=== PATIENT | female | born 1985 | race Caucasian/White ===

== ENCOUNTER 2017-06-09 13:54 | Observation (INO) | payer BC ==
[2017-06-09 15:04] LABS: Basophils # (A) 0.1 k/uL (0-0.2); Basophils % (A) 1 %; Eosinophils # (A) 0.3 k/uL (0-0.7); Eosinophils % (A) 4 %; HCT 49.6 % (34.0-46.0); HGB 15.9 gm/dL (11.4-16.0); Lymphocytes # (A) 1.9 k/uL (1.0-4.8); Lymphocytes % (A) 20 %; MCH 30.3 pg (25.0-35.0); MCV 94.6 fL (80.0-100.0); Mean Platelet Volume 7.5; Monocytes # (A) 0.5 k/uL (0-1.0); Monocytes % (A) 6 %; Neutrophils # (A) 6.4 k/uL (1.3-7.7); Neutrophils % (A) 69 %; Platelet Count 267 k/uL (150-450); RBC 5.25 m/uL (3.80-5.40); RDW 12.5 % (11.5-15.5); WBC 9.3 k/uL (3.8-10.6)
[2017-06-09 15:05] LABS: Appearance,Urine Cloudy (Clear); Bacteria,Urine Occasional /hpf; Bilirubin,Urine Negative (Negative); Blood,Urine Negative (Negative); Budding Yeast,Urine Rare /hpf; Color,Urine Yellow; Glucose,Urine (UA) Negative (Negative); Ketones,Urine Trace (Negative); Leukocyte Esterase,Urine Trace (Negative); Mucus,Urine Moderate /hpf; Nitrite,Urine Negative (Negative); PH, Urine 6.5 (5.0-8.0); Protein,Urine Trace (Negative); RBC,Urine 3 /hpf (0-5); Specific Gravity,Urine 1.021 (1.001-1.035); Squamous Epithelial Cell,Urine 19 /hpf (0-4); Urobilinogen,Urine <2.0 mg/dL (<2.0); WBC,Urine 3 /hpf (0-5)
[2017-06-09 15:17] LABS: ALT 30 U/L (9-52); AST 25 U/L (14-36); Albumin 4.7 g/dL (3.5-5.0); Alkaline Phosphatase 57 U/L (38-126); Amylase 64 U/L (30-110); Anion Gap 11 mmol/L; Blood Urea Nitrogen 15 mg/dL (7-17); Calcium 10.2 mg/dL (8.4-10.2); Carbon Dioxide 27 mmol/L (22-30); Chloride 104 mmol/L (98-107); Glucose 89 mg/dL (74-99); Lipase 111 U/L (23-300); Potassium 4.1 mmol/L (3.5-5.1); Sodium 142 mmol/L (137-145); Total Bilirubin 0.6 mg/dL (0.2-1.3); Total Protein 7.9 g/dL (6.3-8.2)
[2017-06-09] MEDS ORDERED: RX INFO: IV CONTRAST WAS GIVEN 1 EACH MISC MISCELLANE PRN (15:57)
[2017-06-09] MEDS ORDERED: KETOROLAC 30 MG/ML 1 ML VIAL IVP STA (15:57)
[2017-06-09] MEDS ORDERED: SODIUM CHLORIDE 0.9% 1,000 ML IV STA (15:57)
--- NOTE | 2017-06-09 16:14 | ED ---
General Adult HPI - General Source: patient, RN notes reviewed Mode of arrival: ambulatory Limitations: no limitations <Herlinda Wright - Last Filed: 06/09/17 18:02> <Eleazar Li - Last Filed: 06/09/17 18:06> - General Chief complaint: Abdominal Pain Stated complaint: abdominal pain Time Seen by Provider: 06/09/17 15:51 - History of Present Illness Initial comments: 31-year-old female presents to the emergency department with a chief complaint of lower abdominal pain. Patient states it's a stabbing type pain. It is in the center of her abdomen. Patient states he'll just come and go. Patient states she has had nausea vomiting. She denies any fevers or chills with this. She states that she has had some pressure with urinating as well. She denies any cough cold like symptoms. She was concerned because just does not seem to be getting better so she thought that she should be seen. Patient denies any other symptoms at this time.Patient denies any recent fever, chills, shortness of breath, chest pain, back pain, numbness or tingling, dysuria or hematuria, constipation or diarrhea, headaches or visual changes, or any other current symptoms. (Herlinda Wright) - Related Data Home Medications Medication Instructions Recorded Confirmed Amoxicillin 500 mg PO Q8H 06/09/17 06/09/17 Levothyroxine Sodium [Synthroid] 125 mcg PO DAILY 06/09/17 06/09/17 Allergies Allergy/AdvReac Type Severity Reaction Status Date / Time morphine Allergy Rash/Hives Verified 06/09/17 16:01 Review of Systems ROS Other: All systems not noted in ROS Statement are negative. <Herlinda Wright - Last Filed: 06/09/17 18:02> ROS Other: All systems not noted in ROS Statement are negative. <Eleazar Li - Last Filed: 06/09/17 18:06> ROS Statement: Those systems with pertinent positive or pertinent negative responses have been documented in the HPI. Past Medical History Past Medical History: Thyroid Disorder Additional Past Medical History / Comment(s): sorethroat hypothyroidism History of Any Multi-Drug Resistant Organisms: None Reported Past Surgical History: Cholecystectomy Past Psychological History: Anxiety Smoking Status: Current every day smoker Past Alcohol Use History: Daily Past Drug Use History: Marijuana <Herlinda Wright - Last Filed: 06/09/17 18:02> General Exam Limitations: no limitations <Herlinda Wright - Last Filed: 06/09/17 18:02> <Eleazar Li - Last Filed: 06/09/17 18:06> - General Exam Comments Initial Comments: General: The patient is awake and alert, in no distress, and does not appear acutely ill. Eye: Pupils are equal, round and reactive to light, extra-ocular movements are intact; there is normal conjunctiva bilaterally. No signs of icterus. Ears, nose, mouth and throat: There are moist mucous membranes. Neck: The neck is supple, there is no tenderness. Cardiovascular: There is a regular rate and rhythm. No murmur, rub or gallop is appreciated. Respiratory: Lungs are clear to auscultation, respirations are non-labored, breath sounds are equal. No wheezes, stridor, rales, or rhonchi. Gastrointestinal: Soft, non-distended, suprapubic tenderness of the abdomen without masses or organomegaly noted. There is no rebound or guarding present. No CVA tenderness. Bowel sounds are unremarkable. Back: There is no tenderness to palpation in the midline. There is no obvious deformity. No rashes noted. Musculoskeletal: Normal ROM, no tenderness, There is no pedal edema. There is no calf tenderness or swelling. Sensation intact. Pulses equal bilaterally 2+. Neurological: CN II-XII intact, There are no obvious motor or sensory deficits. Coordination appears grossly intact. Speech is normal. Skin: Skin is warm and dry and no rashes or lesions are noted. Psychiatric: Cooperative, appropriate mood & affect, normal judgment. (Herlinda Wright) Course <Herlinda Wright - Last Filed: 06/09/17 18:02> <Eleazar Li - Last Filed: 06/09/17 18:06> Vital Signs 06/09/17 14:26 Temperature 98.4 F Pulse Rate 81 Respiratory 18 Rate Blood Pressure 123/80 O2 Sat by Pulse 98 Oximetry - Reevaluation(s) Reevaluation #1: 06/09/17 18:05 PA supervision: I did personally do a [id number] evaluation the patient did discuss the findings with her and her family members. She does demonstrate some mild tenderness to palpation over the lower abdomen suprapubic region no guarding rebound masses or bruits I did review the imaging and report there is evidence of a swirl sign. Mesenteric involvement a large differential is noted. I did discuss case with Dr. Montoya. Patient will be admitted for further evaluation. (Eleazar Li) Medical Decision Making - Lab Data Result diagrams: 06/09/17 14:45 06/09/17 14:45 - Radiology Data Radiology results: report reviewed, image reviewed <Herlinda Wright - Last Filed: 06/09/17 18:02> - Lab Data Result diagrams: 06/09/17 14:45 06/09/17 14:45 <Eleazar Li - Last Filed: 06/09/17 18:06> - Medical Decision Making 31-year-old female presents for some abdominal discomfort. At this time CAT scan is showing concern due to mesenteric edema. This time we will admit the patient Dr. Montoya was contacted by Dr. Li. We will give her pain medication nausea meds for the floor. Patient is agreement this plan. All questions have been answered. This time patient will be admitted. (Herlinda Wright) - Lab Data Lab Results 06/09/17 06/09/17 06/09/17 Range/Units 14:45 14:45 14:45 WBC 9.3 (3.8-10.6) k/uL RBC 5.25 (3.80-5.40) m/uL Hgb 15.9 (11.4-16.0) gm/dL Hct 49.6 H (34.0-46.0) % MCV 94.6 (80.0-100.0) fL MCH 30.3 (25.0-35.0) pg MCHC 32.0 (31.0-37.0) g/dL RDW 12.5 (11.5-15.5) % Plt Count 267 (150-450) k/uL Neutrophils % 69 % Lymphocytes % 20 % Monocytes % 6 % Eosinophils % 4 % Basophils % 1 % Neutrophils # 6.4 (1.3-7.7) k/uL Lymphocytes # 1.9 (1.0-4.8) k/uL Monocytes # 0.5 (0-1.0) k/uL Eosinophils # 0.3 (0-0.7) k/uL Basophils # 0.1 (0-0.2) k/uL Sodium 142 (137-145) mmol/L Potassium 4.1 (3.5-5.1) mmol/L Chloride 104 (98-107) mmol/L Carbon Dioxide 27 (22-30) mmol/L Anion Gap 11 mmol/L BUN 15 (7-17) mg/dL Creatinine 0.80 (0.52-1.04) mg/dL Est GFR (CKD-EPI)AfAm >90 (>60 ml/min/1.73 sqM) Est GFR (CKD-EPI)NonAf >90 (>60 ml/min/1.73 sqM) Glucose 89 (74-99) mg/dL Calcium 10.2 (8.4-10.2) mg/dL Total Bilirubin 0.6 (0.2-1.3) mg/dL AST 25 (14-36) U/L ALT 30 (9-52) U/L Alkaline Phosphatase 57 (38-126) U/L Total Protein 7.9 (6.3-8.2) g/dL Albumin 4.7 (3.5-5.0) g/dL Amylase 64 (30-110) U/L Lipase 111 (23-300) U/L Urine Color Urine Appearance (Clear) Urine pH (5.0-8.0) Ur Specific [place] (1.001-1.035) Urine Protein (Negative) Urine Glucose (UA) (Negative) Urine Ketones (Negative) Urine Blood (Negative) Urine Nitrite (Negative) Urine Bilirubin (Negative) Urine Urobilinogen (<2.0) mg/dL Ur Leukocyte Esterase (Negative) Urine RBC (0-5) /hpf Urine WBC (0-5) /hpf Ur Squamous Epith Cells (0-4) /hpf Urine Bacteria (None) /hpf Urine Mucus (None) /hpf Urine Yeast (Budding) (None) /hpf Urine HCG, Qual Not Detected (Not Detectd) 06/09/17 Range/Units 14:45 WBC (3.8-10.6) k/uL RBC (3.80-5.40) m/uL Hgb (11.4-16.0) gm/dL Hct (34.0-46.0) % MCV (80.0-100.0) fL MCH (25.0-35.0) pg MCHC (31.0-37.0) g/dL RDW (11.5-15.5) % Plt Count (150-450) k/uL Neutrophils % % Lymphocytes % % Monocytes % % Eosinophils % % Basophils % % Neutrophils # (1.3-7.7) k/uL Lymphocytes # (1.0-4.8) k/uL Monocytes # (0-1.0) k/uL Eosinophils # (0-0.7) k/uL Basophils # (0-0.2) k/uL Sodium (137-145) mmol/L Potassium (3.5-5.1) mmol/L Chloride (98-107) mmol/L Carbon Dioxide (22-30) mmol/L Anion Gap mmol/L BUN (7-17) mg/dL Creatinine (0.52-1.04) mg/dL Est GFR (CKD-EPI)AfAm (>60 ml/min/1.73 sqM) Est GFR (CKD-EPI)NonAf (>60 ml/min/1.73 sqM) Glucose (74-99) mg/dL Calcium (8.4-10.2) mg/dL Total Bilirubin (0.2-1.3) mg/dL AST (14-36) U/L ALT (9-52) U/L Alkaline Phosphatase (38-126) U/L Total Protein (6.3-8.2) g/dL Albumin (3.5-5.0) g/dL Amylase (30-110) U/L Lipase (23-300) U/L Urine Color Yellow Urine Appearance Cloudy H (Clear) Urine pH 6.5 (5.0-8.0) Ur Specific [place] 1.021 (1.001-1.035) Urine Protein Trace H (Negative) Urine Glucose (UA) Negative (Negative) Urine Ketones Trace H (Negative) Urine Blood Negative (Negative) Urine Nitrite Negative (Negative) Urine Bilirubin Negative (Negative) Urine Urobilinogen <2.0 (<2.0) mg/dL Ur Leukocyte Esterase Trace H (Negative) Urine RBC 3 (0-5) /hpf Urine WBC 3 (0-5) /hpf Ur Squamous Epith Cells 19 H (0-4) /hpf Urine Bacteria Occasional H (None) /hpf Urine Mucus Moderate H (None) /hpf Urine Yeast (Budding) Rare H (None) /hpf Urine HCG, Qual (Not Detectd) Disposition Decision Date: 06/09/17 Decision Time: 18:03 <Herlinda Wright - Last Filed: 06/09/17 18:02> <Eleazar Li - Last Filed: 06/09/17 18:06> Clinical Impression: Abdominal pain, Nausea & vomiting Disposition: ADMITTED IP TO THIS [facility] Condition: Stable Referrals: Neo Garcia DO [Primary Care Provider] - 1-2 days
--- NOTE | 2017-06-09 17:02 | CT ---
EXAMINATION TYPE: CT abdomen pelvis w con DATE OF EXAM: 06/09/2017 HISTORY: Lower abdominal pain CT DLP: 1095mGycm Automated Exposure Control for Dose Reduction was Utilized. CONTRAST: CT scan of the abdomen and pelvis is performed with IV Contrast, patient injected with 100 mL of Isov ue 300. COMPARISON: None. FINDINGS: LUNG BASES: Punctate benign granulomas seen within the left lower lobe near the interlobar fissure. LIVER/GB: The liver is elongated extending into the left upper quadrant. Punctate to small to accurat rigoberto characterize 3 mm lesion is seen on series 3 image 26 within the liver in segment IVb. Additional ly there is a focal area of hypoattenuation near the fissure for the falciform ligament most commonly related to focal fatty infiltration. No intrahepatic biliary ductal dilatation. The gallbladder is s urgically absent. PANCREAS: Pancreas enhances homogeneously without ductal dilatation. SPLEEN: No splenomegaly. ADRENALS: No adrenal gland thickening or nodularity. KIDNEYS: The kidneys enhance symmetrically and excrete symmetrically without hydronephrosis or hydrou reter. BOWEL: There is no bowel enlargement, however multiple loops of prominent small bowel are clustered within the left mid abdomen on coronal series 5 image 38 with central swirling of the mesentery with the SMV swirling around the SMA seen on series 3 image 31-41. This is compatible with the swelling ve ssels sign. Mesenteric edema and engorgement of the vasa recta are also seen within the low pelvis on series 3 image 63 and 64. Descending colon is decompressed. Appendix is air-filled and within normal limits. Terminal ileum is also decompressed and evaluation for bowel wall thickening is limited. UTERUS/ADNEXA: Crenulated appearing peripherally hyperemic and hyperattenuated 1.8 cm left adnexal le kay is seen as well as an additional 2.2 cm low-density left adnexal lesion. Numerous right ovarian follicles are noted. Free fluid is noted within the pelvis, overall moderate degree. LYMPH NODES: No greater than 1cm abdominal or pelvic lymph nodes are appreciated. OSSEOUS STRUCTURES: Osseous structures are intact. IMPRESSION: 1. Although there is no evidence of bowel enlargement and no transition point identified there is a s wirling vessels sign in the mesentery that can be seen in internal hernia. Surgical evaluation could be performed. 2. Mesenteric edema and vascular engorgement in the low pelvis that can be related to fluid overload or inflammatory bowel disease. 3. Crenulated appearing left adnexal lesion that likely represents an involuting cyst and small amoun t of free pelvic fluid that may represent recent cyst rupture.
[2017-06-09] MEDS ORDERED: ONDANSETRON 4 MG/2 ML VIAL IVP PRN (18:03)
[2017-06-09] MEDS ORDERED: NALOXONE 0.4 MG/ML 1 ML VIAL IV PRN (18:03)
[2017-06-09] MEDS ORDERED: KETOROLAC 30 MG/ML 1 ML VIAL IVP PRN (18:03)
[2017-06-09] MEDS ORDERED: ACETAMINOPHEN TAB 500 MG TAB PO STA (18:25)
[2017-06-09] MEDS ORDERED: fentaNYL (PF) 50 MCG/ML 2 ML AMP IV STA (18:28)
[2017-06-09 20:03] VITALS: BMI 23.7
[2017-06-09] MEDS: HYDROcodone/APAP 5-325MG 1 EACH TAB PO PRN (20:42)
[2017-06-09] MEDS: AMOXICILLIN 500 MG CAP PO SCH (21:53)
[2017-06-10] MEDS: HYDROcodone/APAP 5-325MG 1 EACH TAB PO PRN ×4 (03:34→22:15)
[2017-06-10] MEDS: LEVOTHYROXINE 125 MCG TAB PO SCH (06:10)
[2017-06-10 06:49] LABS: ALT 26 U/L (9-52); AST 17 U/L (14-36); Albumin 3.2 g/dL (3.5-5.0); Alkaline Phosphatase 41 U/L (38-126); Anion Gap 8 mmol/L; Basophils % (A) 1 %; Blood Urea Nitrogen 14 mg/dL (7-17); Calcium 8.5 mg/dL (8.4-10.2); Carbon Dioxide 21 mmol/L (22-30); Chloride 110 mmol/L (98-107); Eosinophils # (A) 0.4 k/uL (0-0.7); Eosinophils % (A) 6 %; Glucose 83 mg/dL (74-99); HGB 13.3 gm/dL (11.4-16.0); Lymphocytes # (A) 1.8 k/uL (1.0-4.8); Lymphocytes % (A) 33 %; MCHC 34.1 g/dL (31.0-37.0); MCV 93.7 fL (80.0-100.0); Mean Platelet Volume 7.3; Monocytes # (A) 0.3 k/uL (0-1.0); Monocytes % (A) 4 %; Neutrophils % (A) 54 %; Platelet Count 230 k/uL (150-450); Potassium 3.9 mmol/L (3.5-5.1); RBC 4.16 m/uL (3.80-5.40); RDW 12.3 % (11.5-15.5); Sodium 139 mmol/L (137-145); Total Bilirubin 0.8 mg/dL (0.2-1.3); Total Protein 5.5 g/dL (6.3-8.2); WBC 5.6 k/uL (3.8-10.6)
[2017-06-10] MEDS: SODIUM CHLORIDE 0.9% 1,000 ML IV SCH ×3 (07:48→18:11)
[2017-06-10] MEDS: AMOXICILLIN 500 MG CAP PO SCH ×3 (07:51→22:15)
--- NOTE | 2017-06-10 11:23 | P.GSHP ---
History of Present Illness H&P Date: 06/10/17 Chief Complaint: Abdominal pain Patient came to the ER yesterday with complaints of somewhat sudden onset mid abdominal pain. The pain is periumbilical. Initially she thought it may be menstrual cramps however it became much more severe in nature and for that reason she wanted this evaluated. She had episodes of nausea and vomiting. She feels a heaviness in the lower abdomen. Pain is worse when standing. No history of similar events. Normal bowel habits recently. No rectal bleeding or melena. No fevers. Her labs a been normal including a lactic acid. Her CAT scan however showed some swirling of the small bowel mesentery with some subtle edema in the small bowel mesentery as well. She was admitted for observation. She says her pain is still coming and going throughout the night although better this morning that was yesterday. Pain ranges from 2-5 out of 10. Only surgical history is a lap amber. She was told she had scar tissue at that time. No evidence of malrotation on CAT scan given the location of the ligament of Treitz. - Review of Systems Comment: The patient denies any acute changes in vision or hearing, no dysphagia or odynophagia, no chest pain or shortness of breath, no dysuria or hematuria, no headache, no runny nose, no rectal bleeding or melena, no unexplained weight loss Past Medical History Past Medical History: Thyroid Disorder Additional Past Medical History / Comment(s): hypothyroidism History of Any Multi-Drug Resistant Organisms: None Reported Past Surgical History: Cholecystectomy Past Psychological History: Anxiety Smoking Status: Current every day smoker Past Alcohol Use History: Daily Additional Past Alcohol Use History / Comment(s): pt states she has a glass of wine with each meal. Past Drug Use History: Marijuana - Past Family History Mother Family Medical History: COPD, Hypertension Additional Family Medical History / Comment(s): macular degeneration, heart murmur, 2 hip surgeries Father Family Medical History: Hypertension Medications and Allergies Home Medications Medication Instructions Recorded Confirmed Type Amoxicillin 500 mg PO Q8H 06/09/17 06/09/17 History Levothyroxine Sodium [Synthroid] 125 mcg PO DAILY 06/09/17 06/09/17 History Allergies Allergy/AdvReac Type Severity Reaction Status Date / Time morphine Allergy Rash/Hives Verified 06/09/17 16:01 Surgical - Exam Vital Signs Temp Pulse Resp BP Pulse Ox 98.4 F 81 18 123/80 98 06/09/17 14:26 06/09/17 14:26 06/09/17 14:26 06/09/17 14:26 06/09/17 14:26 Physical exam: General: Well-developed, well-nourished HEENT: Normocephalic, sclerae nonicteric Abdomen: Nondistended, mild diffuse tenderness increase in the infraumbilical location Extremities: No edema Neuro: Alert and oriented Results - Labs 06/10/17 06:20 06/10/17 06:20 Abnormal Lab Results - Last 24 Hours (Table) 06/09/17 06/09/17 06/10/17 Range/Units 14:45 14:45 06:20 Hct 49.6 H (34.0-46.0) % Chloride 110 H (98-107) mmol/L Carbon Dioxide 21 L (22-30) mmol/L Total Protein 5.5 L (6.3-8.2) g/dL Albumin 3.2 L (3.5-5.0) g/dL Urine Appearance Cloudy H (Clear) Urine Protein Trace H (Negative) Urine Ketones Trace H (Negative) Ur Leukocyte Esterase Trace H (Negative) Ur Squamous Epith Cells 19 H (0-4) /hpf Urine Bacteria Occasional H (None) /hpf Urine Mucus Moderate H (None) /hpf Urine Yeast (Budding) Rare H (None) /hpf Diabetes panel 06/09/17 06/10/17 Range/Units 14:45 06:20 Sodium 142 139 (137-145) mmol/L Potassium 4.1 3.9 (3.5-5.1) mmol/L Chloride 104 110 H (98-107) mmol/L Carbon Dioxide 27 21 L (22-30) mmol/L BUN 15 14 (7-17) mg/dL Creatinine 0.80 0.70 (0.52-1.04) mg/dL Glucose 89 83 (74-99) mg/dL Calcium 10.2 8.5 (8.4-10.2) mg/dL AST 25 17 (14-36) U/L ALT 30 26 (9-52) U/L Alkaline Phosphatase 57 41 (38-126) U/L Total Protein 7.9 5.5 L (6.3-8.2) g/dL Albumin 4.7 3.2 L (3.5-5.0) g/dL Calcium panel 06/09/17 06/10/17 Range/Units 14:45 06:20 Calcium 10.2 8.5 (8.4-10.2) mg/dL Albumin 4.7 3.2 L (3.5-5.0) g/dL Pituitary panel 06/09/17 06/10/17 Range/Units 14:45 06:20 Sodium 142 139 (137-145) mmol/L Potassium 4.1 3.9 (3.5-5.1) mmol/L Chloride 104 110 H (98-107) mmol/L Carbon Dioxide 27 21 L (22-30) mmol/L BUN 15 14 (7-17) mg/dL Creatinine 0.80 0.70 (0.52-1.04) mg/dL Glucose 89 83 (74-99) mg/dL Calcium 10.2 8.5 (8.4-10.2) mg/dL Adrenal panel 06/09/17 06/10/17 Range/Units 14:45 06:20 Sodium 142 139 (137-145) mmol/L Potassium 4.1 3.9 (3.5-5.1) mmol/L Chloride 104 110 H (98-107) mmol/L Carbon Dioxide 27 21 L (22-30) mmol/L BUN 15 14 (7-17) mg/dL Creatinine 0.80 0.70 (0.52-1.04) mg/dL Glucose 89 83 (74-99) mg/dL Calcium 10.2 8.5 (8.4-10.2) mg/dL Total Bilirubin 0.6 0.8 (0.2-1.3) mg/dL AST 25 17 (14-36) U/L ALT 30 26 (9-52) U/L Alkaline Phosphatase 57 41 (38-126) U/L Total Protein 7.9 5.5 L (6.3-8.2) g/dL Albumin 4.7 3.2 L (3.5-5.0) g/dL Assessment and Plan (1) Abdominal pain Narrative/Plan: Clinical scenario discussed in detail with the patient and her . There remains a concern regarding the CAT scan findings despite her normal lab work and vital signs. The possibility the patient has a partial volvulus or internal hernia remains particularly given the way she describes the pain in the location of the pain. The potential catastrophic nature of a missed diagnosis in this case leads me to strongly consider diagnostic laparoscopy. The patient is agreeable. We discussed the options of lysis of adhesions or laparotomy if necessary. Risks of bleeding, infection, bowel injury, recurrent adhesions, recurrent hernia, negative laparoscopy was discussed. She understands and wishes to proceed. Current Visit: Yes Status: Acute Code(s): R10.9 - UNSPECIFIED ABDOMINAL PAIN SNOMED Code(s): 79028375
[2017-06-10] MEDS ORDERED: IV FLUID CONTINUATION 1,000 ML IV ONE (14:27)
[2017-06-10] MEDS ORDERED: HEPARIN SODIUM,PORCINE 5,000 UNIT/ML 1 ML VIAL SQ ONE (14:34)
[2017-06-10] MEDS ORDERED: ROCURONIUM BROMIDE 10 MG/ML 10 ML VIAL IV ONE (14:39)
[2017-06-10] MEDS ORDERED: ACETAMINOPHEN IV (For NPO) 1,000 MG/100 ML VIAL ONE (14:39)
[2017-06-10] MEDS ORDERED: fentaNYL (PF) 50 MCG/ML 2 ML AMP ONE (14:39)
[2017-06-10] MEDS ORDERED: PROPOFOL 10 MG/ML 20 ML VIAL IV ONE (14:39)
[2017-06-10] MEDS ORDERED: GLYCOPYRROLATE 0.2 MG/ML 2 ML VIAL ONE (14:39)
[2017-06-10] MEDS ORDERED: ONDANSETRON 4 MG/2 ML VIAL ONE (14:39)
[2017-06-10] MEDS ORDERED: MIDAZOLAM 2 MG/2 ML VIAL ONE (14:39)
[2017-06-10] MEDS ORDERED: LIDOCAINE 1% INJ 10MG/ML (20 ML MDV) ONE (14:39)
[2017-06-10] MEDS ORDERED: NEOSTIGMINE 1 MG/ML 10 ML VIAL ONE (14:39)
[2017-06-10] MEDS ORDERED: SUCCINYLCHOLINE CHLORIDE 100 MG/5 ML SYR IV ONE (14:39)
[2017-06-10] MEDS ORDERED: ceFAZolin IN SWFI 2 GM/20 ML SYRINGE IVP ONE (14:45)
[2017-06-10] MEDS ORDERED: BUPIVACAINE (PF) 0.25% 30 ML VIAL SQ ONE ×2 (14:48)
[2017-06-10] MEDS ORDERED: SODIUM CHLORIDE 0.9% 50 ML with ceFAZolin 2,000 MG IV ONE ×2 (14:50)
[2017-06-10] MEDS ORDERED: LACTATED RINGERS 1,000 ML IV ONE (15:10)
[2017-06-10] MEDS ORDERED: CELLULOSE,OXIDIZED 1 EACH EACH MISCELLANE ONE (15:35)
--- NOTE | 2017-06-10 15:53 | P.CONS ---
History of Present Illness - Reason for Consult Possibility of urinary tract infection - History of Present Illness Patient came to the ER yesterday with complaints of somewhat sudden onset mid abdominal pain. The pain is periumbilical. Initially she thought it may be menstrual cramps however it became much more severe in nature and for that reason she wanted this evaluated. She had episodes of nausea and vomiting. She feels a heaviness in the lower abdomen. Pain is worse when standing. No history of similar events. Normal bowel habits recently. No rectal bleeding or melena. No fevers. Her labs a been normal including a lactic acid. Her CAT scan however showed some swirling of the small bowel mesentery with some subtle edema in the small bowel mesentery as well. She was admitted for observation. She says her pain is still coming and going throughout the night although better this morning that was yesterday. Pain ranges from 2-5 out of 10. Only surgical history is a lap amber. She was told she had scar tissue at that time. No evidence of malrotation on CAT scan given the location of the ligament of Treitz. Patient is undergoing the expiratory laparotomy today. Patient denied any dysuria patient doesn't have any fever chills. Patient denied any increased urinary frequency. Patient does have dry cough and patient was diagnosed with the stay pharyngitis for which patient is on ampicillin which is being continued here. Review of Systems REVIEW OF SYSTEMS: CONSTITUTIONAL: No fever, no malaise, no fatigue. HEENT: As mentioned in HPI CARDIOVASCULAR: No chest pain, orthopnea, PND, no palpitations, no syncope. PULMONARY: No shortness of breath, no cough, no hemoptysis. GASTROINTESTINAL: As mentioned in HPI NEUROLOGICAL: No headaches, no weakness, no numbness. HEMATOLOGICAL: Denies any bleeding or petechiae. GENITOURINARY: Denies any burning micturition, frequency, or urgency. MUSCULOSKELETAL/RHEUMATOLOGICAL: Denies any joint pain, swelling, or any muscle pain. ENDOCRINE: Denies any polyuria or polydipsia. The rest of the 14-point review of systems is negative. Past Medical History Past Medical History: Thyroid Disorder Additional Past Medical History / Comment(s): hypothyroidism History of Any Multi-Drug Resistant Organisms: None Reported Past Surgical History: Cholecystectomy Past Psychological History: Anxiety Smoking Status: Current every day smoker Past Alcohol Use History: Daily Additional Past Alcohol Use History / Comment(s): pt states she has a glass of wine with each meal. Past Drug Use History: Marijuana - Past Family History Mother Family Medical History: COPD, Hypertension Additional Family Medical History / Comment(s): macular degeneration, heart murmur, 2 hip surgeries Father Family Medical History: Hypertension Medications and Allergies Home Medications Medication Instructions Recorded Confirmed Type Amoxicillin 500 mg PO Q8H 06/09/17 06/09/17 History Levothyroxine Sodium [Synthroid] 125 mcg PO DAILY 06/09/17 06/09/17 History Allergies Allergy/AdvReac Type Severity Reaction Status Date / Time morphine Allergy Rash/Hives Verified 06/10/17 14:28 Physical Exam Vitals: Vital Signs Temp Pulse Pulse Resp BP BP Pulse Ox 06/10/17 14:28 62 16 107/70 98 06/10/17 11:39 98.8 F 67 18 118/84 99 06/10/17 08:05 98.1 F 62 16 106/71 98 06/10/17 08:02 98.1 F 62 16 106/71 98 06/10/17 03:30 98.5 F 66 18 106/66 98 06/09/17 20:00 98.6 F 66 18 127/75 98 06/09/17 19:38 98.4 F 60 18 122/81 98 Intake and Output 06/10/17 06/10/17 06/10/17 06:59 14:59 22:59 Intake Total 980 200 Balance 980 200 Intake: IV 200 Intake, IV Titration 980 Amount Sodium Chloride 0.9% 1, 980 000 ml @ 100 mls/hr IV . Q10H [facility] Rx#:[id number] Other: # Voids 1 1 PHYSICAL EXAMINATION: GENERAL: The patient is alert and oriented x3, not in any acute distress. Well developed, well nourished. HEENT: Pupils are round and equally reacting to light. EOMI. No scleral icterus. No conjunctival pallor. Normocephalic, atraumatic. No pharyngeal erythema. No thyromegaly. CARDIOVASCULAR: S1 and S2 present. No murmurs, rubs, or gallops. PULMONARY: Chest is clear to auscultation, no wheezing or crackles. ABDOMEN: Soft, minimal tenderness in the periodic leg area nondistended, normoactive bowel sounds. No palpable organomegaly. MUSCULOSKELETAL: No joint swelling or deformity. EXTREMITIES: No cyanosis, clubbing, or pedal edema. NEUROLOGICAL: Gross neurological examination did not reveal any focal deficits. SKIN: No rashes. Results CBC & Chem 7: 06/10/17 06:20 06/10/17 06:20 Labs: Abnormal Lab Results - Last 24 Hours (Table) 06/10/17 Range/Units 06:20 Chloride 110 H (98-107) mmol/L Carbon Dioxide 21 L (22-30) mmol/L Total Protein 5.5 L (6.3-8.2) g/dL Albumin 3.2 L (3.5-5.0) g/dL Assessment and Plan Plan: Assessment and Plan Plan: -Abdominal pain: Probably related to intussusception or internal hernia, patient will undergo expiratory laparotomy. Pain management as per primary service -Asymbptomatic bacteriuria: Patient doesn't have any urinary tract infection will not require antibiotics from this perspective although patient is on ampicillin for step sore throat -Strep pharyngitis -Hypothyroidism continue with levo-thyroxine
--- NOTE | 2017-06-10 16:20 | P.OP ---
Date of Procedure: 06/10/17 Procedure(s) Performed: PREOPERATIVE DIAGNOSIS: Abdominal pain, possible internal hernia or volvulus POSTOPERATIVE DIAGNOSIS: Hemoperitoneum with hemorrhagic left ovarian cyst PROCEDURE: Diagnostic laparoscopy with control of hemorrhagic left ovarian cyst SURGEON: Jan EBL: 50 mL with approximately 250 mL of old blood within the abdominal cavity ANESTHESIA: Gen. COMPLICATIONS: None OPERATIVE PROCEDURE: The patient was brought and placed on the operating room table in the supine position. The patient was placed under general anesthesia at that time. The abdomen was prepped and draped in the usual sterile fashion. A small vertical infraumbilical incision was made. The fascia was grasped with the Lindsay forceps. The fascia was retracted anteriorly. The Veress needle was advanced into the peritoneal cavity. The saline drop test was normal. Insufflation took place up to 15 mmHg. A 5 mm optical trocar was advanced and the peritoneal cavity. 2 additional 5 mm trochars were placed in the left lateral abdomen. The patient had evidence of hemoperitoneum. This was enough to see some blood along the right pericolic gutter and around the liver as well as in the pelvis. This was evacuated using suction. There was some more dense organized clot formation in the left adnexa. The visualized liver stomach and colon appeared normal. The small bowel was ran from the ileocecal valve to the ligament of Treitz and no abnormalities were identified. There were no adhesions in the abdomen. The appendix appeared normal. I then reexamined the left and right ovaries. When I first evaluated the bilateral adnexa I did not appreciate any active bleeding. However when I reexamined the left adnexa there was active bleeding coming from a small superficial defect in the capsule of the left ovary. This was bleeding somewhat briskly. This was controlled fairly easily with electrocautery. I contacted radiology during the procedure who agreed that there did appear to be some inflammatory change and fluid adjacent to the left ovary on last night CAT scan. I also contacted gynecology on-call Dr. Gonzalez. She advised wrapping the left ovary in Interceed to help prevent future adhesions. In the process of placing the Interceed ovary was lifted out of the pelvis once again. I did see some slight oozing that was controlled once again using electrocautery. I watched that ovary for approximately 10 minutes following that with some irrigation as well and no further bleeding was identified. The ovary was wrapped in intercede. This was placed back into the adnexa. Further irrigation took place. The trochars were removed. The skin at all 3 sites were closed using 4-0 Monocryl sutures. At the end of this procedure the sponge and needle counts were correct. DISPOSITION: Stable to the recovery room
[2017-06-10 16:36] LABS: Basophils # (A) 0.1 k/uL (0-0.2); Basophils % (A) 1 %; Eosinophils # (A) 0.3 k/uL (0-0.7); Eosinophils % (A) 4 %; HCT 39.8 % (34.0-46.0); HGB 12.4 gm/dL (11.4-16.0); Lymphocytes # (A) 1.8 k/uL (1.0-4.8); Lymphocytes % (A) 22 %; MCH 30.5 pg (25.0-35.0); MCHC 31.1 g/dL (31.0-37.0); Mean Platelet Volume 8.1; Monocytes # (A) 0.3 k/uL (0-1.0); Monocytes % (A) 4 %; Neutrophils # (A) 5.4 k/uL (1.3-7.7); Neutrophils % (A) 67 %; Platelet Count 200 k/uL (150-450); RBC 4.05 m/uL (3.80-5.40); RDW 12.2 % (11.5-15.5)
[2017-06-10] MEDS ORDERED: diphenhydrAMINE 50 MG/ML 1 ML VIAL IVP ONE (16:59)
[2017-06-11] MEDS: HYDROcodone/APAP 5-325MG 1 EACH TAB PO PRN ×5 (02:22→20:08)
[2017-06-11] MEDS: SODIUM CHLORIDE 0.9% 1,000 ML IV SCH (02:22)
[2017-06-11] MEDS: LEVOTHYROXINE 125 MCG TAB PO SCH (06:01)
[2017-06-11 07:07] LABS: Basophils % (A) 0 %; Eosinophils # (A) 0.3 k/uL (0-0.7); Eosinophils % (A) 4 %; HCT 37.3 % (34.0-46.0); Lymphocytes # (A) 1.4 k/uL (1.0-4.8); Lymphocytes % (A) 19 %; MCH 30.7 pg (25.0-35.0); MCHC 32.2 g/dL (31.0-37.0); MCV 95.4 fL (80.0-100.0); Mean Platelet Volume 7.9; Monocytes # (A) 0.3 k/uL (0-1.0); Monocytes % (A) 4 %; Neutrophils # (A) 5.2 k/uL (1.3-7.7); Neutrophils % (A) 71 %; Platelet Count 191 k/uL (150-450); RBC 3.91 m/uL (3.80-5.40); RDW 12.3 % (11.5-15.5); WBC 7.3 k/uL (3.8-10.6)
[2017-06-11] MEDS: AMOXICILLIN 500 MG CAP PO SCH ×2 (08:55→16:57)
--- NOTE | 2017-06-11 09:18 | P.PN ---
Progress Note - Text Progress Note Date: 06/11/17 31-year-old female postop day #1. I was called by the nurse because patient was complaining of pain in her the right upper lip on the inside. I went to the room and examined the patient myself. Patient was feeling comfortable said she was a little concerned about the bump in her right upper lip. It is most likely due to airway insertion during anesthesia after induction. The patient states that she already feels better and it's going away. I reassured the patient that this is a self-limited lesion small superficial abrasion that will resolve by itself within the next 24 hours
--- NOTE | 2017-06-11 10:52 | P.PN ---
Subjective Progress Note Date: 06/11/17 Principal diagnosis: Hemorrhagic ovarian cyst Patient says she feels tired today. Some discomforts. Lower abdominal pain seems improved from before surgery. She'll low-grade temp of 99.9. Hemoglobin is relatively stable at 12 this morning. No tachycardia. She is not sure she feels up to going home today. Objective - Vital Signs Vital signs: Vital Signs Temp 99.9 F H 06/11/17 10:29 Pulse 80 06/11/17 08:16 Resp 16 06/11/17 08:16 BP 120/83 06/11/17 08:16 Pulse Ox 95 06/11/17 08:16 Intake & Output 06/10/17 06/11/17 06/11/17 18:59 06:59 18:59 Intake Total 600 Output Total 100 750 Balance 500 -750 Intake: IV 600 Output: Urine 750 Estimated Blood Loss 100 Other: Voiding Method Toilet Toilet # Voids 1 1 - Exam Abdomen: Soft, nondistended, mild tenderness, dressings intact - Labs CBC & Chem 7: 06/11/17 06:45 06/10/17 06:20 Assessment and Plan (1) Abdominal pain Narrative/Plan: Will begin incentive spirometry for the low-grade temp of 99.9. Ambulate. Resume diet. Home later today or tomorrow. Current Visit: Yes Status: Acute Code(s): R10.9 - UNSPECIFIED ABDOMINAL PAIN SNOMED Code(s): 21424806
[2017-06-11] MEDS: ACETAMINOPHEN TAB 325 MG TAB PO PRN ×2 (16:06→20:07)
--- NOTE | 2017-06-11 17:55 | P.PN ---
Subjective Patient is postoperative day one Laparotomy found to have hemorrhagic and cautious for ovarian cyst. Patient's pain significantly improved but patient is still not at her baseline has some low-grade fever and leukocytosis will obtain a chest x-ray to rule out atelectasis patient is on ampicillin patient also received ceftezole in yesterday as a preop perioperative antibiotic. Year from yesterday was reviewed. Still has some abdominal pain is complaining of cough without any sputum production Objective - Vital Signs Vital signs: Vital Signs Temp 99.4 F 06/11/17 16:15 Pulse 77 06/11/17 16:15 Resp 16 06/11/17 16:15 BP 119/79 06/11/17 16:15 Pulse Ox 97 06/11/17 12:12 Intake & Output 06/10/17 06/11/17 06/11/17 18:59 06:59 18:59 Intake Total 600 300 Output Total 100 750 Balance 500 -750 300 Intake: IV 600 Oral 300 Output: Urine 750 Estimated Blood Loss 100 Other: Voiding Method Toilet Toilet # Voids 1 1 1 - Exam PHYSICAL EXAMINATION: GENERAL: The patient is alert and oriented x3, not in any acute distress. Well developed, well nourished. HEENT: Pupils are round and equally reacting to light. EOMI. No scleral icterus. No conjunctival pallor. Normocephalic, atraumatic. No pharyngeal erythema. No thyromegaly. CARDIOVASCULAR: S1 and S2 present. No murmurs, rubs, or gallops. PULMONARY: Chest is clear to auscultation, no wheezing or crackles. ABDOMEN: Soft, surgical site areas appear to be clean minimal tenderness in the left lower quadrant MUSCULOSKELETAL: No joint swelling or deformity. EXTREMITIES: No cyanosis, clubbing, or pedal edema. NEUROLOGICAL: Gross neurological examination did not reveal any focal deficits. SKIN: No rashes. - Labs CBC & Chem 7: 06/11/17 06:45 06/10/17 06:20 Assessment and Plan Plan: Assessment and Plan Plan: -Abdominal pain: Patient is found to have hemorrhagic ovarian cyst which was ligated -Fever in the postoperative period on Mehdi started on Ceftin discontinue the amoxicillin if she is feeling well tomorrow patient will be discharged tomorrow on Ceftin for 5 days may have urinary tract infection chest x-ray will be obtained -Strep pharyngitis -Hypothyroidism continue with levo-thyroxine
[2017-06-11] MEDS: cefTRIAXone IN SWFI 1,000 MG/10 ML SYRINGE IVP SCH (18:43)
[2017-06-12] MEDS: ACETAMINOPHEN TAB 325 MG TAB PO PRN (00:25)
[2017-06-12] MEDS: HYDROcodone/APAP 5-325MG 1 EACH TAB PO PRN (00:26)
[2017-06-12 00:32] VITALS: RESP 18
[2017-06-12] MEDS: SODIUM CHLORIDE 0.9% 1,000 ML IV SCH ×3 (01:25→06:38)
[2017-06-12] MEDS: LEVOTHYROXINE 125 MCG TAB PO SCH (06:38)
[2017-06-12 07:54] LABS: Basophils % (A) 0 %; Eosinophils # (A) 0.4 k/uL (0-0.7); Eosinophils % (A) 6 %; HCT 37.2 % (34.0-46.0); HGB 12.8 gm/dL (11.4-16.0); Lymphocytes # (A) 1.3 k/uL (1.0-4.8); Lymphocytes % (A) 19 %; MCHC 34.4 g/dL (31.0-37.0); MCV 92.9 fL (80.0-100.0); Mean Platelet Volume 7.4; Monocytes # (A) 0.3 k/uL (0-1.0); Monocytes % (A) 5 %; Neutrophils # (A) 4.9 k/uL (1.3-7.7); Neutrophils % (A) 69 %; Platelet Count 229 k/uL (150-450); RDW 12.1 % (11.5-15.5); WBC 7.1 k/uL (3.8-10.6)
[2017-06-12 08:02] LABS: Anion Gap 9 mmol/L; Blood Urea Nitrogen 7 mg/dL (7-17); Calcium 8.7 mg/dL (8.4-10.2); Carbon Dioxide 25 mmol/L (22-30); Chloride 108 mmol/L (98-107); Glucose 91 mg/dL (74-99); Potassium 4.1 mmol/L (3.5-5.1); Sodium 142 mmol/L (137-145)
[2017-06-12] MEDS ORDERED: ACETAMINOPHEN TAB 325 MG TAB PO PRN (08:25)
[2017-06-12 08:31] VITALS: BP 121/74; PULSE 73; TEMP 98.5
[2017-06-12] MEDS: cefTRIAXone IN SWFI 1,000 MG/10 ML SYRINGE IVP SCH (12:15)
--- NOTE | 2017-06-12 12:29 | P.DS ---
Providers Date of admission: 06/09/17 18:06 Expected date of discharge: 06/12/17 Attending physician: Ricardo Montoya Consults: 06/09/17 18:04 Consult Physician Routine Consulting Provider: Alia Feliciano Consult Reason/Comments: abdominal pain Do you want consulting provider notified?: Yes Primary care physician: Neo Garcia - Discharge Diagnosis(es) (1) Abdominal pain Patient was admitted with abdominal pain. Initial CAT scan suggested a possible internal hernia or small bowel volvulus. Laparoscopy revealed a hemorrhagic left ovarian cyst. This was treated with electrocautery. The patient has since improved in her symptoms. Hemoglobin has been stable. She is anxious to go home today. Incisions are clean and dry. Plan outpatient follow-up with myself and also with gynecology. Current Visit: Yes Status: Acute Patient Condition at Discharge: Stable Plan - Discharge Summary New Discharge Prescriptions: New Hydrocodone/Acetaminophen [[place] 5-325] 1 - 2 each PO Q4HR PRN #14 tab PRN Reason: pain Cefuroxime Axetil [Ceftin] 500 mg PO BID #6 tab Discontinued Amoxicillin 500 mg PO Q8H No Action Levothyroxine Sodium [Synthroid] 125 mcg PO DAILY Discharge Medication List Levothyroxine Sodium [Synthroid] 125 mcg PO DAILY 06/09/17 [History] Hydrocodone/Acetaminophen [[place] 5-325] 1 - 2 each PO Q4HR PRN #14 tab 06/10/17 [Rx] Cefuroxime Axetil [Ceftin] 500 mg PO BID #6 tab 06/12/17 [Rx] Follow up Appointment(s)/Referral(s): Ricardo Montoya MD [Medical Doctor] - 06/29/17 Neo Garcia DO [Primary Care Provider] - 3 Days Bhavin Cordero DO [REFERRING] - 1 Week Activity/Diet/Wound Care/Special Instructions: OK TO DISCHARGE HOME. FOLLOW UP ADVISED, SOONER IF PROBLEMS OR CONCERNS. IE...FEVER, CHILLS, REDNESS/WARMTH OR FOUL SMELLING DRAINAGE FROM INCISIONAL SITES. PAIN NOT RELIEVED BY PRESCRIPTION MEDICATION, INABILITY TO TOLERATE FLUIDS/FOOD, ANY PROBLEMS OR CONCERNS. MAY SHOWER, NO TUB BATHS, HOT TUBS, OR SWIMMING POOLS. LIGHT ACTIVITY, NO STRENUOUS EXERCISE OR HEAVY LIFTING. Discharge Disposition: HOME SELF-CARE
--- NOTE | 2017-06-12 13:00 | P.PN ---
Subjective Patient is postoperative day one Laparotomy found to have hemorrhagic and cautious for ovarian cyst. Patient's pain significantly improved but patient is still not at her baseline has some low-grade fever and leukocytosis will obtain a chest x-ray to rule out atelectasis patient is on ampicillin patient also received ceftezole in yesterday as a preop perioperative antibiotic. Year from yesterday was reviewed. Still has some abdominal pain is complaining of cough without any sputum production 06/12/2017 patient is doing much better today abdominal pain significantly improved patient will be discharged on Ceftin for 3 days after ceftriaxone infusion today Objective - Vital Signs Vital signs: Vital Signs Temp 98.5 F 06/12/17 07:00 Pulse 73 06/12/17 07:00 Resp 18 06/12/17 07:00 BP 121/74 06/12/17 07:00 Pulse Ox 95 06/12/17 07:00 Intake & Output 06/11/17 06/12/17 06/12/17 18:59 06:59 18:59 Intake Total 300 Balance 300 Intake: Oral 300 Other: # Voids 1 - Exam PHYSICAL EXAMINATION: GENERAL: The patient is alert and oriented x3, not in any acute distress. Well developed, well nourished. HEENT: Pupils are round and equally reacting to light. EOMI. No scleral icterus. No conjunctival pallor. Normocephalic, atraumatic. No pharyngeal erythema. No thyromegaly. CARDIOVASCULAR: S1 and S2 present. No murmurs, rubs, or gallops. PULMONARY: Chest is clear to auscultation, no wheezing or crackles. ABDOMEN: Soft, surgical site areas appear to be clean minimal tenderness in the left lower quadrant MUSCULOSKELETAL: No joint swelling or deformity. EXTREMITIES: No cyanosis, clubbing, or pedal edema. NEUROLOGICAL: Gross neurological examination did not reveal any focal deficits. SKIN: No rashes. - Labs CBC & Chem 7: 06/12/17 07:07 06/12/17 07:07 Labs: Abnormal Lab Results - Last 24 Hours (Table) 06/12/17 Range/Units 07:07 Chloride 108 H (98-107) mmol/L Assessment and Plan Plan: Assessment and Plan Plan: -Abdominal pain: Patient is found to have hemorrhagic ovarian cyst which was ligated -Fever in the postoperative period , urinary tract infection cannot be completely ruled out patient will be discharged on Ceftin and amoxicillin will be discontinued -Strep pharyngitis -Hypothyroidism continue with levo-thyroxine
== END 2017-06-12 12:50 | disposition home or self-care (01) ==
LOC: EC 13:54 → 6PED 18:06
PROVIDERS: ADMIT Surgery; ATTEND Surgery
DX: N83.202 Unspecified ovarian cyst, left side (principal); K66.1 Hemoperitoneum; E03.9 Hypothyroidism, unspecified; F41.9 Anxiety disorder, unspecified; J02.0 Streptococcal pharyngitis; R82.71 Bacteriuria; R50.82 Postprocedural fever; F17.200 Nicotine dependence, unspecified, uncomplicated; S00.511A Abrasion of lip, initial encounter; Y84.8 Other medical procedures as the cause of abnormal reaction of the patient, or of later complication, without mention of misadventure at the time of the procedure; Z79.899 Other long term (current) drug therapy; Z88.5 Allergy status to narcotic agent; Z90.49 Acquired absence of other specified parts of digestive tract; Z82.49 Family history of ischemic heart disease and other diseases of the circulatory system; Z82.5 Family history of asthma and other chronic lower respiratory diseases; Z83.518 Family history of other specified eye disorder
CPT/HCPCS: 58662; 99285 ×2; 96374 ×2; 96375 ×2; 96361 ×3; 36415; 81025 ×2; 80053 ×2; 80048; 82150; 83605; 83690; 85025 ×4; 81001; 74177; G0378 ×4; J2250; J1200; J1644; J2710; J2405; J2001; J0696 ×2; J3010 ×2; J1885; J0690; J0131; J0330; J2704; Q9967

== ENCOUNTER 2018-07-07 17:38 | Emergency (ER) | payer BC ==
[2018-07-07 17:44] VITALS: RESP 18
[2018-07-07] MEDS ORDERED: KETOROLAC 30 MG/ML 1 ML VIAL IVP STA (18:03)
[2018-07-07] MEDS ORDERED: ONDANSETRON 4 MG/2 ML VIAL IVP STA (18:03)
[2018-07-07] MEDS ORDERED: SODIUM CHLORIDE 0.9% 1,000 ML IV STA ×2 (18:03)
--- NOTE | 2018-07-07 18:17 | ED ---
General Adult HPI - General Chief complaint: Vaginal Bleeding Stated complaint: abdominal pain/excessive vaginal bleeding Time Seen by Provider: 07/07/18 17:46 Source: patient, RN notes reviewed, old records reviewed Mode of arrival: ambulatory Limitations: no limitations - History of Present Illness Initial comments: Pt is a 32 year female with CC of vaginal bleeding for the past day. Patient has had her menstrual cycle a vehicle. Patient presents today with concerns for the heavy vaginal bleeding. She states that she's had history of large ovarian cysts were she had to have the cyst removed surgically last year. Patient was seen by her PCP Jonathan and sent in for an outpatient computed tomography scan. She was unable to complete the outpatient computed tomography scan and came to the ER for further evaluation. She states that her pain seems to come and go in a shooting pain. She reports that mainly in her lower abdomen. She denies any sp ecific side. Patient states that she is a G2 P V2 female. - Related Data Home Medications Medication Instructions Recorded Confirmed Levothyroxine Sodium [Synthroid] 137 mcg PO DAILY 07/07/18 07/07/18 Allergies Allergy/AdvReac Type Severity Reaction Status Date / Time morphine Allergy Rash/Hives Verified 07/07/18 17:51 Review of Systems ROS Statement: Those systems with pertinent positive or pertinent negative responses have been documented in the HPI. ROS Other: All systems not noted in ROS Statement are negative. Past Medical History Past Medical History: Thyroid Disorder Additional Past Medical History / Comment(s): hypothyroidism, ovarian cyst History of Any Multi-Drug Resistant Organisms: None Reported Past Surgical History: Cholecystectomy Past Psychological History: Anxiety Smoking Status: Current every day smoker Past Alcohol Use History: Daily Past Drug Use History: Marijuana - Past Family History Mother Family Medical History: COPD, Hypertension Additional Family Medical History / Comment(s): macular degeneration, heart murmur, 2 hip surgeries Father Family Medical History: Hypertension General Exam - General Exam Comments Initial Comments: 32-year-old female. Alert and oriented. No distress. Limitations: no limitations General appearance: alert, in no apparent distress Head exam: Present: atraumatic, normocephalic, normal inspection Eye exam: Present: normal appearance, PERRL, EOMI. Absent: scleral icterus, conjunctival injection, periorbital swelling ENT exam: Present: normal exam, mucous membranes moist Neck exam: Present: normal inspection. Absent: tenderness, meningismus, lymphadenopathy Respiratory exam: Present: normal lung sounds bilaterally. Absent: respiratory distress, wheezes, rales, rhonchi, stridor Cardiovascular Exam: Present: regular rate, normal rhythm, normal heart sounds. Absent: systolic murmur, diastolic murmur, rubs, gallop, clicks GI/Abdominal exam: Present: soft, tenderness (Bilateral lower quadrant tenderness.), normal bowel sounds. Absent: distended, guarding, rebound, rigid External exam: Present: normal external exam, other (Vaginal bleeding). Absent: lesions Speculum exam: Present: normal speculum exam. Absent: erythema, vaginal discharge, cervical discharge, vaginal bleeding By manual exam: Present: normal by manual exam. Absent: cervical motion tenderness, adnexal tenderness Extremities exam: Present: normal inspection, full ROM, normal capillary refill. Absent: tenderness, pedal edema, joint swelling, calf tenderness Back exam: Present: normal inspection Neurological exam: Present: alert, oriented X3, CN II-XII intact Psychiatric exam: Present: normal affect, normal mood Skin exam: Present: warm, dry, intact, normal color. Absent: rash Course Vital Signs 07/07/18 17:40 Temperature 98.2 F Pulse Rate 78 Respiratory 18 Rate Blood Pressure 122/82 O2 Sat by Pulse 99 Oximetry Medical Decision Making - Medical Decision Making 32-year-old female presents raise articular abdominal pain and vaginal bleeding. She reports she had a period one week ago. She does have some vaginal bleeding on exam. No significant adnexal tenderness. She's had history of ruptured ovarian cyst with internal bleeding. She reports she was sent in by PCP for further evaluation today for an outpatient computed tomography scan was unable to complete this. At this time she does have tenderness on exam was given Toradol and Zofran for pain. Patient's labwork was reviewed and unremarkable. HCG is negative. No concerns or . CT abdomen and pelvis completed and shows no significant abnormalities. No evidence of any internal fluid. I discussed with Patient and will follow up with her PCP. Discussed [facility] follow-up as well as Dr. Cordero. All questions answered return parameters were discussed. - Lab Data Result diagrams: 07/07/18 18:23 07/07/18 18:23 Lab Results 07/07/18 07/07/18 07/07/18 Range/Units 18:19 18:23 18:23 WBC 6.4 (3.8-10.6) k/uL RBC 4.69 (3.80-5.40) m/uL Hgb 14.8 (11.4-16.0) gm/dL Hct 44.8 (34.0-46.0) % MCV 95.5 (80.0-100.0) fL MCH 31.6 (25.0-35.0) pg MCHC 33.1 (31.0-37.0) g/dL RDW 12.8 (11.5-15.5) % Plt Count 287 (150-450) k/uL Neutrophils % 52 % Lymphocytes % 32 % Monocytes % 6 % Eosinophils % 8 % Basophils % 1 % Neutrophils # 3.3 (1.3-7.7) k/uL Lymphocytes # 2.1 (1.0-4.8) k/uL Monocytes # 0.4 (0-1.0) k/uL Eosinophils # 0.5 (0-0.7) k/uL Basophils # 0.1 (0-0.2) k/uL PT (9.0-12.0) sec INR (<1.2) APTT (22.0-30.0) sec Sodium 139 (137-145) mmol/L Potassium 4.6 (3.5-5.1) mmol/L Chloride 106 (98-107) mmol/L Carbon Dioxide 25 (22-30) mmol/L Anion Gap 8 mmol/L BUN 15 (7-17) mg/dL Creatinine 0.65 (0.52-1.04) mg/dL Est GFR (CKD-EPI)AfAm >90 (>60 ml/min/1.73 sqM) Est GFR (CKD-EPI)NonAf >90 (>60 ml/min/1.73 sqM) Glucose 112 H (74-99) mg/dL Calcium 9.9 (8.4-10.2) mg/dL Total Bilirubin 0.6 (0.2-1.3) mg/dL AST 26 (14-36) U/L ALT 25 (9-52) U/L Alkaline Phosphatase 59 (38-126) U/L Total Protein 7.1 (6.3-8.2) g/dL Albumin 4.4 (3.5-5.0) g/dL Amylase 62 (30-110) U/L Lipase 234 (23-300) U/L Urine Color Urine Appearance (Clear) Urine pH (5.0-8.0) Ur Specific [place] (1.001-1.035) Urine Protein (Negative) Urine Glucose (UA) (Negative) Urine Ketones (Negative) Urine Blood (Negative) Urine Nitrite (Negative) Urine Bilirubin (Negative) Urine Urobilinogen (<2.0) mg/dL Ur Leukocyte Esterase (Negative) Urine RBC (0-5) /hpf Urine WBC (0-5) /hpf Ur Squamous Epith Cells (0-4) /hpf Amorphous Sediment (None) /hpf Urine Mucus (None) /hpf Urine HCG, Qual (Not Detectd) Trichomonas Ag (Rapid) (Negative) Blood Type Blood Type Confirm O Positive Blood Type Recheck Antibody Screen Spec Expiration Date 07/07/18 07/07/18 07/07/18 Range/Units 18:23 18:33 18:43 WBC (3.8-10.6) k/uL RBC (3.80-5.40) m/uL Hgb (11.4-16.0) gm/dL Hct (34.0-46.0) % MCV (80.0-100.0) fL MCH (25.0-35.0) pg MCHC (31.0-37.0) g/dL RDW (11.5-15.5) % Plt Count (150-450) k/uL Neutrophils % % Lymphocytes % % Monocytes % % Eosinophils % % Basophils % % Neutrophils # (1.3-7.7) k/uL Lymphocytes # (1.0-4.8) k/uL Monocytes # (0-1.0) k/uL Eosinophils # (0-0.7) k/uL Basophils # (0-0.2) k/uL PT 11.4 (9.0-12.0) sec INR 1.1 (<1.2) APTT 26.2 (22.0-30.0) sec Sodium (137-145) mmol/L Potassium (3.5-5.1) mmol/L Chloride (98-107) mmol/L Carbon Dioxide (22-30) mmol/L Anion Gap mmol/L BUN (7-17) mg/dL Creatinine (0.52-1.04) mg/dL Est GFR (CKD-EPI)AfAm (>60 ml/min/1.73 sqM) Est GFR (CKD-EPI)NonAf (>60 ml/min/1.73 sqM) Glucose (74-99) mg/dL Calcium (8.4-10.2) mg/dL Total Bilirubin (0.2-1.3) mg/dL AST (14-36) U/L ALT (9-52) U/L Alkaline Phosphatase (38-126) U/L Total Protein (6.3-8.2) g/dL Albumin (3.5-5.0) g/dL Amylase (30-110) U/L Lipase (23-300) U/L Urine Color Yellow Urine Appearance Clear (Clear) Urine pH 5.5 (5.0-8.0) Ur Specific [place] 1.024 (1.001-1.035) Urine Protein Negative (Negative) Urine Glucose (UA) Negative (Negative) Urine Ketones Negative (Negative) Urine Blood Small H (Negative) Urine Nitrite Negative (Negative) Urine Bilirubin Negative (Negative) Urine Urobilinogen <2.0 (<2.0) mg/dL Ur Leukocyte Esterase Negative (Negative) Urine RBC 4 (0-5) /hpf Urine WBC 3 (0-5) /hpf Ur Squamous Epith Cells 3 (0-4) /hpf Amorphous Sediment Rare H (None) /hpf Urine Mucus Occasional H (None) /hpf Urine HCG, Qual (Not Detectd) Trichomonas Ag (Rapid) (Negative) Blood Type O Positive Blood Type Confirm Blood Type Recheck CABO Indicated Antibody Screen NEGATIVE Spec Expiration Date 07/10/2018232207/07/18 07/07/18 Range/Units 18:43 19:49 WBC (3.8-10.6) k/uL RBC (3.80-5.40) m/uL Hgb (11.4-16.0) gm/dL Hct (34.0-46.0) % MCV (80.0-100.0) fL MCH (25.0-35.0) pg MCHC (31.0-37.0) g/dL RDW (11.5-15.5) % Plt Count (150-450) k/uL Neutrophils % % Lymphocytes % % Monocytes % % Eosinophils % % Basophils % % Neutrophils # (1.3-7.7) k/uL Lymphocytes # (1.0-4.8) k/uL Monocytes # (0-1.0) k/uL Eosinophils # (0-0.7) k/uL Basophils # (0-0.2) k/uL PT (9.0-12.0) sec INR (<1.2) APTT (22.0-30.0) sec Sodium (137-145) mmol/L Potassium (3.5-5.1) mmol/L Chloride (98-107) mmol/L Carbon Dioxide (22-30) mmol/L Anion Gap mmol/L BUN (7-17) mg/dL Creatinine (0.52-1.04) mg/dL Est GFR (CKD-EPI)AfAm (>60 ml/min/1.73 sqM) Est GFR (CKD-EPI)NonAf (>60 ml/min/1.73 sqM) Glucose (74-99) mg/dL Calcium (8.4-10.2) mg/dL Total Bilirubin (0.2-1.3) mg/dL AST (14-36) U/L ALT (9-52) U/L Alkaline Phosphatase (38-126) U/L Total Protein (6.3-8.2) g/dL Albumin (3.5-5.0) g/dL Amylase (30-110) U/L Lipase (23-300) U/L Urine Color Urine Appearance (Clear) Urine pH (5.0-8.0) Ur Specific [place] (1.001-1.035) Urine Protein (Negative) Urine Glucose (UA) (Negative) Urine Ketones (Negative) Urine Blood (Negative) Urine Nitrite (Negative) Urine Bilirubin (Negative) Urine Urobilinogen (<2.0) mg/dL Ur Leukocyte Esterase (Negative) Urine RBC (0-5) /hpf Urine WBC (0-5) /hpf Ur Squamous Epith Cells (0-4) /hpf Amorphous Sediment (None) /hpf Urine Mucus (None) /hpf Urine HCG, Qual Not Detected (Not Detectd) Trichomonas Ag (Rapid) Negative (Negative) Blood Type Blood Type Confirm Blood Type Recheck Antibody Screen Spec Expiration Date - Radiology Data Radiology results: report reviewed CT is negative for any acute process. Disposition Clinical Impression: Abdominal pain, Abnormal uterine bleeding Disposition: HOME SELF-CARE Condition: Good Instructions (If sedation given, give patient instructions): Dysfunctional Uterine Bleeding (ED), Abdominal Pain (ED) Additional Instructions: Follow up with primary care doctor. Follow-up with [facility]. Return to emergency department if any alarming signs or symptoms occur. Is patient prescribed a controlled substance at d/c from ED?: No Referrals: Neo Garcia DO [Primary Care Provider] - 1-2 days Time of Disposition: 20:28
[2018-07-07 19:00] LABS: ALT 25 U/L (9-52); AST 26 U/L (14-36); Albumin 4.4 g/dL (3.5-5.0); Alkaline Phosphatase 59 U/L (38-126); Amylase 62 U/L (30-110); Anion Gap 8 mmol/L; Blood Urea Nitrogen 15 mg/dL (7-17); Calcium 9.9 mg/dL (8.4-10.2); Carbon Dioxide 25 mmol/L (22-30); Chloride 106 mmol/L (98-107); Glucose 112 mg/dL (74-99); Lipase 234 U/L (23-300); Potassium 4.6 mmol/L (3.5-5.1); Sodium 139 mmol/L (137-145); Total Bilirubin 0.6 mg/dL (0.2-1.3); Total Protein 7.1 g/dL (6.3-8.2)
[2018-07-07 19:28] LABS: Amorphous Sediment,Urine Rare /hpf; Appearance,Urine Clear (Clear); Bilirubin,Urine Negative (Negative); Blood,Urine Small (Negative); Color,Urine Yellow; Glucose,Urine (UA) Negative (Negative); Ketones,Urine Negative (Negative); Leukocyte Esterase,Urine Negative (Negative); Mucus,Urine Occasional /hpf; Nitrite,Urine Negative (Negative); PH, Urine 5.5 (5.0-8.0); Protein,Urine Negative (Negative); RBC,Urine 4 /hpf (0-5); Specific Gravity,Urine 1.024 (1.001-1.035); Squamous Epithelial Cell,Urine 3 /hpf (0-4); Urobilinogen,Urine <2.0 mg/dL (<2.0); WBC,Urine 3 /hpf (0-5)
[2018-07-07 19:33] LABS: INR 1.1 (<1.2); Partial Thromboplastin Time 26.2 sec (22.0-30.0); Prothrombin Time 11.4 sec (9.0-12.0)
--- NOTE | 2018-07-07 19:56 | CT ---
EXAMINATION TYPE: CT abdomen pelvis w con DATE OF EXAM: 07/07/2018 COMPARISON: 06/09/2017 HISTORY: PELVIC PAIN AND VAGINAL BLEEDING CT DLP: 535.5 mGycm CONTRAST: CT scan of the abdomen and pelvis is performed without Oral Contrast and with IV Contrast, patient in jected with 100 mL of Isovue 300. FINDINGS: LUNG BASES-: No visible nodule. No infiltrate. LIVER/GB: No calcified gallstones. No space occupying hepatic lesion. Biliary tree is of normal ca liber. PANCREAS: No inflammation. No distinct mass. SPLEEN: No splenic enlargement. No lesion seen. ADRENALS: No nodule. No thickening. KIDNEYS/BLADDER: No hydronephrosis. No nephrolithiasis. No distinct renal mass. Urinary bladder g rossly unremarkable. BOWEL: Normal appendix. Normal bowel caliber. No inflammation. GENITAL ORGANS: No gross abnormality. No uterine mass or adnexal mass noted. No free fluid. LYMPH NODES: No greater than 1cm abdominal or pelvic lymph nodes are appreciated. AORTA: No significant abnormality. OSSEOUS STRUCTURES: No significant abnormality is seen. OTHER: No significant additional abnormality is seen. IMPRESSION: 1. No significant abnormality appreciated. The patient's symptoms.
[2018-07-07 20:12] LABS: Basophils # (A) 0.1 k/uL (0-0.2); Basophils % (A) 1 %; Eosinophils # (A) 0.5 k/uL (0-0.7); Eosinophils % (A) 8 %; HCT 44.8 % (34.0-46.0); HGB 14.8 gm/dL (11.4-16.0); Lymphocytes # (A) 2.1 k/uL (1.0-4.8); Lymphocytes % (A) 32 %; MCH 31.6 pg (25.0-35.0); MCHC 33.1 g/dL (31.0-37.0); MCV 95.5 fL (80.0-100.0); Mean Platelet Volume 7.4; Monocytes # (A) 0.4 k/uL (0-1.0); Monocytes % (A) 6 %; Neutrophils # (A) 3.3 k/uL (1.3-7.7); Neutrophils % (A) 52 %; Platelet Count 287 k/uL (150-450); RBC 4.69 m/uL (3.80-5.40); RDW 12.8 % (11.5-15.5); WBC 6.4 k/uL (3.8-10.6)
[2018-07-07 21:12] VITALS: BP 107/83; PULSE 60; TEMP 97.8
[2018-07-09 13:27] LABS: C. trachomatis,PCR Negative (Neg,Equiv); Chlamydia trachomatis Source Vagina
[2018-07-09 13:36] LABS: N. gonorrhoeae,PCR Negative (Neg,Equiv); Neisseria Source Vagina
== END 2018-07-07 21:10 | disposition home or self-care (01) ==
LOC: EC 17:38
DX: N93.9 Abnormal uterine and vaginal bleeding, unspecified (principal); E03.9 Hypothyroidism, unspecified; F17.200 Nicotine dependence, unspecified, uncomplicated; Z88.5 Allergy status to narcotic agent; Z79.890 Hormone replacement therapy; Z90.49 Acquired absence of other specified parts of digestive tract; Z87.42 Personal history of other diseases of the female genital tract; Z98.890 Other specified postprocedural states
CPT/HCPCS: 36415; 86900; 86901; 80053; 82150; 83690; 85025; 85610; 85730; 86850; 81001; 81025; 87808; 87491; 87591; 87070; 87205; 74177; 99284; 96374; 96375; 96361 ×3; J2405; J1885; Q9967

== ENCOUNTER 2021-04-30 15:34 | Emergency (ER) | payer BC ==
[2021-04-30] MEDS ORDERED: SODIUM CHLORIDE 0.9% 1,000 ML IV STA (18:41)
[2021-04-30] MEDS ORDERED: ONDANSETRON 4 MG/2 ML VIAL IVP STA (18:41)
[2021-04-30 19:09] LABS: Basophils # (A) 0.1 k/uL (0-0.2); Basophils % (A) 1 %; Eosinophils # (A) 0.3 k/uL (0-0.7); Eosinophils % (A) 5 %; HCT 43.1 % (34.0-46.0); HGB 14.6 gm/dL (11.4-16.0); Lymphocytes # (A) 2.2 k/uL (1.0-4.8); Lymphocytes % (A) 31 %; MCH 32.2 pg (25.0-35.0); MCHC 33.9 g/dL (31.0-37.0); MCV 95.2 fL (80.0-100.0); Mean Platelet Volume 7.7; Monocytes # (A) 0.3 k/uL (0-1.0); Monocytes % (A) 4 %; Neutrophils # (A) 4.1 k/uL (1.3-7.7); Neutrophils % (A) 58 %; Platelet Count 221 k/uL (150-450); RBC 4.52 m/uL (3.80-5.40); RDW 11.8 % (11.5-15.5)
[2021-04-30 19:15] LABS: Appearance,Urine Clear (Clear); Bilirubin,Urine Negative (Negative); Blood,Urine Negative (Negative); Color,Urine Light Yellow; Glucose,Urine (UA) Negative (Negative); Ketones,Urine Trace (Negative); Leukocyte Esterase,Urine Negative (Negative); Nitrite,Urine Negative (Negative); Protein,Urine Negative (Negative); Specific Gravity,Urine 1.012 (1.001-1.035); Urobilinogen,Urine <2.0 mg/dL (<2.0)
[2021-04-30 19:20] LABS: ALT 17 U/L (4-34); AST 21 U/L (14-36); African American GFR (CKD) >90 (>60 ml/min/1.73 sqM); Albumin 4.1 g/dL (3.5-5.0); Alkaline Phosphatase 56 U/L (38-126); Anion Gap 7 mmol/L; Blood Urea Nitrogen 13 mg/dL (7-17); Calcium 9.5 mg/dL (8.4-10.2); Carbon Dioxide 23 mmol/L (22-30); Chloride 106 mmol/L (98-107); Glucose 93 mg/dL (74-99); Lipase 217 U/L (23-300); Non-African American GFR(CKD) >90 (>60 ml/min/1.73 sqM); Sodium 136 mmol/L (137-145); Total Bilirubin 0.5 mg/dL (0.2-1.3); Total Protein 6.8 g/dL (6.3-8.2)
[2021-04-30] MEDS ORDERED: ACETAMINOPHEN TAB 500 MG TAB PO STA (19:20)
[2021-04-30] MEDS ORDERED: KETOROLAC 15 MG/ML 1 ML VIAL IVP STA (19:23)
--- NOTE | 2021-04-30 19:31 | ED ---
General Adult HPI - General Chief complaint: Abdominal Pain Stated complaint: abd pain Time Seen by Provider: 04/30/21 18:22 Source: patient, RN notes reviewed Mode of arrival: wheelchair Limitations: no limitations - History of Present Illness Initial comments: 35-year-old female presents to the emergency department for evaluation of left lower quadrant abdominal pain that she describes as sharp stabbing in nature. Patient states discomfort began this morning after twisting movement and is accompanied by low back pain. Patient states she was recently diagnosed with a ruptured ovarian cyst as well as a UTI. Patient states the pain in her abdomen is quite persistent, but also has back pain that worsens with activity, palpation, and movement. Complains of scattered areas of abdominal pain with oral intake. Complains of mild nausea; denies vomiting, constipation, or diarrhea. No fever, chills, chest pain, or shortness of breath. - Related Data Home Medications Medication Instructions Recorded Confirmed Levothyroxine Sodium [Synthroid] 88 mcg PO DAILY 04/30/21 04/30/21 Levothyroxine Sodium [Synthroid] 100 mcg PO DAILY 04/30/21 04/30/21 Sulfamethox-Tmp 800-160Mg [Bactrim 1 tab PO BID 04/30/21 04/30/21 DS 800-160 mg] Previous Rx's Medication Instructions Recorded Ibuprofen [Motrin] 600 mg PO Q8HR PRN #30 tab 04/30/21 Ondansetron Odt [Zofran Odt] 4 mg PO Q8HR PRN #10 tab 04/30/21 Allergies Allergy/AdvReac Type Severity Reaction Status Date / Time codeine Allergy Chest Verified 04/30/21 19:06 Pressure morphine Allergy Rash/Hives Verified 04/30/21 19:06 Review of Systems ROS Statement: Those systems with pertinent positive or pertinent negative responses have been documented in the HPI. ROS Other: All systems not noted in ROS Statement are negative. Past Medical History Past Medical History: Thyroid Disorder Additional Past Medical History / Comment(s): hypothyroidism, ovarian cyst History of Any Multi-Drug Resistant Organisms: None Reported Past Surgical History: Cholecystectomy Past Psychological History: Anxiety Smoking Status: Current every day smoker Past Alcohol Use History: Daily Past Drug Use History: Marijuana - Past Family History Mother Family Medical History: COPD, Hypertension Additional Family Medical History / Comment(s): macular degeneration, heart murmur, 2 hip surgeries Father Family Medical History: Hypertension General Exam Limitations: no limitations (Well-developed, well-nourished female in no acute distress. Initial temperature 97.7, pulse 79, respirations 16, blood pressure 108/75, pulse ox 97% on room air.) General appearance: alert, in no apparent distress ENT exam: Present: normal exam, normal oropharynx, mucous membranes moist Neck exam: Present: normal inspection, full ROM. Absent: tenderness, meningismus, lymphadenopathy Respiratory exam: Present: normal lung sounds bilaterally. Absent: respiratory distress, wheezes, rales, rhonchi, stridor Cardiovascular Exam: Present: regular rate, normal rhythm, normal heart sounds. Absent: systolic murmur, diastolic murmur, rubs, gallop, clicks GI/Abdominal exam: Present: soft, tenderness (Left lower quadrant abdominal tenderness upon palpation), guarding (Generalized guarding of the abdomen), normal bowel sounds. Absent: distended, rebound, rigid Back exam: Present: normal inspection, paraspinal tenderness (Paraspinal tenderness upon palpation of the lumbar spine bilaterally), vertebral tenderness (Vertebral tenderness upon palpation of the lumbar spine ). Absent: CVA tenderness (R), CVA tenderness (L) Neurological exam: Present: alert, oriented X3, CN II-XII intact Psychiatric exam: Present: normal affect, normal mood Skin exam: Present: warm, dry, intact, normal color. Absent: rash Course Vital Signs 04/30/21 04/30/21 16:50 23:29 Temperature 97.7 F 97 F L Pulse Rate 79 78 Respiratory 16 18 Rate Blood Pressure 108/75 123/83 O2 Sat by Pulse 97 97 Oximetry - Reevaluation(s) Reevaluation #1: 04/30/21 21:00 Patient is ambulatory in the hallway without difficulty; she has a smooth easy gait. States back pain is improved and nearly resolved. Continues to have LLQ pain that she describes as improved from burning pain to dull discomfort. Medical Decision Making - Medical Decision Making 35-year-old female presents to the emergency department for evaluation of left lower quadrant abdominal pain and back pain, onset today. Upon exam, patient is well-appearing and in no acute distress. Vital signs are stable. Patient is afebrile and not tachycardic. She does experience moderate amount of discomfort with palpation of the lower abdomen. She is able to move freely and reposition without difficulty. Patient does state that she has recently been treated for a UTI and was diagnosed with a ruptured ovarian cyst on the right side. States the pain she is experiencing on the left side is different and accompanied by mild nausea. Laboratory studies were obtained and are unremarkable. Urinalysis shows UTI has resolved. CT of the abdomen and pelvis with contrast was negative. Ultrasound does show bilateral ovarian cysts, but no ovarian torsion. Patient was given Tylenol, Toradol, and Zofran with improvement. Results were discussed with patient. Explained that her workup did not show any acute findings to explain discomfort therefore it will be important that she follow up with her PCP for a recheck. Return parameters were discussed in detail. Patient verbalizes understanding and agrees with this plan. This patient's care was discussed with my attending Dr. Ortiz. - Lab Data Result diagrams: 04/30/21 19:03 04/30/21 19:03 Lab Results 04/30/21 04/30/21 04/30/21 Range/Units 19:03 19:03 19:03 WBC 7.0 (3.8-10.6) k/uL RBC 4.52 (3.80-5.40) m/uL Hgb 14.6 (11.4-16.0) gm/dL Hct 43.1 (34.0-46.0) % MCV 95.2 (80.0-100.0) fL MCH 32.2 (25.0-35.0) pg MCHC 33.9 (31.0-37.0) g/dL RDW 11.8 (11.5-15.5) % Plt Count 221 (150-450) k/uL MPV 7.7 Neutrophils % 58 % Lymphocytes % 31 % Monocytes % 4 % Eosinophils % 5 % Basophils % 1 % Neutrophils # 4.1 (1.3-7.7) k/uL Lymphocytes # 2.2 (1.0-4.8) k/uL Monocytes # 0.3 (0-1.0) k/uL Eosinophils # 0.3 (0-0.7) k/uL Basophils # 0.1 (0-0.2) k/uL Sodium (137-145) mmol/L Potassium (3.5-5.1) mmol/L Chloride (98-107) mmol/L Carbon Dioxide (22-30) mmol/L Anion Gap mmol/L BUN (7-17) mg/dL Creatinine (0.52-1.04) mg/dL Est GFR (CKD-EPI)AfAm (>60 ml/min/1.73 sqM) Est GFR (CKD-EPI)NonAf (>60 ml/min/1.73 sqM) Glucose (74-99) mg/dL Calcium (8.4-10.2) mg/dL Total Bilirubin (0.2-1.3) mg/dL AST (14-36) U/L ALT (4-34) U/L Alkaline Phosphatase (38-126) U/L Total Protein (6.3-8.2) g/dL Albumin (3.5-5.0) g/dL Lipase (23-300) U/L Urine Color Light Yellow Urine Appearance Clear (Clear) Urine pH 6.0 (5.0-8.0) Ur Specific [place] 1.012 (1.001-1.035) Urine Protein Negative (Negative) Urine Glucose (UA) Negative (Negative) Urine Ketones Trace H (Negative) Urine Blood Negative (Negative) Urine Nitrite Negative (Negative) Urine Bilirubin Negative (Negative) Urine Urobilinogen <2.0 (<2.0) mg/dL Ur Leukocyte Esterase Negative (Negative) Urine HCG, Qual Not Detected (Not Detectd) 04/30/21 Range/Units 19:03 WBC (3.8-10.6) k/uL RBC (3.80-5.40) m/uL Hgb (11.4-16.0) gm/dL Hct (34.0-46.0) % MCV (80.0-100.0) fL MCH (25.0-35.0) pg MCHC (31.0-37.0) g/dL RDW (11.5-15.5) % Plt Count (150-450) k/uL MPV Neutrophils % % Lymphocytes % % Monocytes % % Eosinophils % % Basophils % % Neutrophils # (1.3-7.7) k/uL Lymphocytes # (1.0-4.8) k/uL Monocytes # (0-1.0) k/uL Eosinophils # (0-0.7) k/uL Basophils # (0-0.2) k/uL Sodium 136 L (137-145) mmol/L Potassium 4.0 (3.5-5.1) mmol/L Chloride 106 (98-107) mmol/L Carbon Dioxide 23 (22-30) mmol/L Anion Gap 7 mmol/L BUN 13 (7-17) mg/dL Creatinine 0.75 (0.52-1.04) mg/dL Est GFR (CKD-EPI)AfAm >90 (>60 ml/min/1.73 sqM) Est GFR (CKD-EPI)NonAf >90 (>60 ml/min/1.73 sqM) Glucose 93 (74-99) mg/dL Calcium 9.5 (8.4-10.2) mg/dL Total Bilirubin 0.5 (0.2-1.3) mg/dL AST 21 (14-36) U/L ALT 17 (4-34) U/L Alkaline Phosphatase 56 (38-126) U/L Total Protein 6.8 (6.3-8.2) g/dL Albumin 4.1 (3.5-5.0) g/dL Lipase 217 (23-300) U/L Urine Color Urine Appearance (Clear) Urine pH (5.0-8.0) Ur Specific [place] (1.001-1.035) Urine Protein (Negative) Urine Glucose (UA) (Negative) Urine Ketones (Negative) Urine Blood (Negative) Urine Nitrite (Negative) Urine Bilirubin (Negative) Urine Urobilinogen (<2.0) mg/dL Ur Leukocyte Esterase (Negative) Urine HCG, Qual (Not Detectd) - Radiology Data Radiology results: report reviewed, image reviewed CT of the abdomen and pelvis with contrast was obtained. Report was reviewed in its entirety. Impression per Dr. Shay is no significant abnormality seen. Transvaginal ultrasound was obtained. Report was reviewed in its entirety. Impression per Dr. Ahumada is bilateral ovarian cysts. No solid adnexal mass. No evidence of ovarian torsion. Small amount of free fluid is probably physiologic. Normal uterus. Disposition Clinical Impression: Abdominal pain, Ovarian cyst, Nausea Disposition: HOME SELF-CARE Condition: Stable Instructions (If sedation given, give patient instructions): Acute Nausea and Vomiting (ED), Acute Abdominal Pain (ED) Additional Instructions: Take Motrin if needed for pain. Zofran for nausea. Follow-up with your PCP for a recheck in the next week. Return to the emergency department with any new, worsening, or concerning symptoms. Prescriptions: Ibuprofen [Motrin] 600 mg PO Q8HR PRN #30 tab PRN Reason: Pain Ondansetron Odt [Zofran Odt] 4 mg PO Q8HR PRN #10 tab PRN Reason: Nausea Is patient prescribed a controlled substance at d/c from ED?: No Referrals: Neo Garcia DO [Primary Care Provider] - 1-2 days Time of Disposition: 23:09
--- NOTE | 2021-04-30 20:38 | CT ---
EXAMINATION TYPE: CT abdomen pelvis w con DATE OF EXAM: 04/30/2021 COMPARISON: 07/07/2018 HISTORY: llq pian CT DLP: 665.5 mGycm Automated exposure control for dose reduction was used. TECHNIQUE: Helical acquisition of images was performed from the lung bases through the pelvis. CONTRAST: Performed without Oral Contrast and with IV Contrast, patient injected with 100 mL of Isovue 300. FINDINGS: The lung bases are clear. There is surgical absence of the gallbladder. There is no biliary ductal dilatation. There is no focal mass or organomegaly involving the liver, pancreas, spleen or adrenal glands. The kidneys excrete contrast promptly and symmetrically is no solid renal mass or hydronephrosis. The re is no retroperitoneal adenopathy or hemorrhage in the caliber of the abdominal aorta is normal. The bowel loops are normal in caliber and there is no evidence of obstruction. No inflammatory change s are identified in the bowel wall or mesentery and there is no free intraperitoneal air or fluid. There is no pelvic mass, free fluid, abscess or adenopathy. The osseous structures are intact. IMPRESSION: No significant abnormality seen.
--- NOTE | 2021-04-30 22:53 | US ---
EXAMINATION TYPE: US transvaginal DATE OF EXAM: 04/30/2021 COMPARISON: CT CLINICAL HISTORY: known ovarian cysts, left side pain. Pain. Hx laparoscopy, ovarian cyst. TECHNIQUE: Transvaginal (TV). Date of LMP: 04/14/2021 EXAM MEASUREMENTS: Uterus: 8.1 x 5.6 x 4.9 cm Endometrial Stripe: 1.49 cm Right Ovary: 4.5 x 3.0 x 2.9 cm Left Ovary: 3.2 x 2.4 x 2.1 cm 1. Uterus: Anteverted 2. Endometrium: Measures 1.49 cm. Upper limits versus slightly thickened for LMP 3. Right Ovary: Measures upper limits of normal versus slightly enlarged? Septated anechoic area see n: 2.8 x 2.4 x 2.0 cm. 4. Left Ovary: Septated anechoic area seen: 1.1 x 1.4 x 0.8 cm. Spectral, color and waveform doppler imaging shows arterial and venous flow within the ovaries. 5. Bilateral Adnexa: Appear wnl 6. Posterior cul-de-sac: Fluid seen. IMPRESSION: Bilateral ovarian cysts. No solid adnexal mass. No evidence of ovarian torsion. Small amount of free fluid is probably physiologic. Normal uterus.
[2021-04-30 23:30] VITALS: BP 123/83; PULSE 78; RESP 18; TEMP 97
== END 2021-04-30 23:30 | disposition home or self-care (01) ==
LOC: EC 15:34
DX: N83.202 Unspecified ovarian cyst, left side (principal); R11.0 Nausea; E07.9 Disorder of thyroid, unspecified; F41.9 Anxiety disorder, unspecified; F17.200 Nicotine dependence, unspecified, uncomplicated; F12.90 Cannabis use, unspecified, uncomplicated; Z88.5 Allergy status to narcotic agent; Z90.49 Acquired absence of other specified parts of digestive tract
CPT/HCPCS: 99284; 96374; 96375; 96361; 36415; 80053; 83690; 85025; 81003; 81025; 93975; 76830; 74177; J2405; J1885; Q9967